=== PATIENT | male | born 1990 | race Two or more races ===

== ENCOUNTER 2017-08-17 10:37 | Emergency (ER) | payer MEDICAID ==
[~2017-08-17] VITALS: Ht 167.6 cm; Wt 81.6 kg
[2017-08-17] MEDS ORDERED: IBUPROFEN600 MG ORAL (11:12)
[2017-08-17] MEDS ORDERED: Dexamethasone 4mg/ml vial IM ONE (11:15)
[2017-08-17 11:25] VITALS: BP 128/70
--- NOTE | 2017-08-17 12:36 | Emergency Room Report ---
History of Present Illness General Chief Complaint: Skin Rash/Abscess Source: Patient Present Illness HPI 18-year-old male, no significant past medical history, presenting with sore throat for 2-3 days. Slight cough, no fever no chills, also with runny nose. States he has pain when he swallows however has still been able to eat and drink normally Allergies: Coded Allergies: No Known Allergies (Unverified , 08/17/17) Patient History Past Medical History: see triage record Past Surgical History: none Pertinent Family History: none Reviewed Nursing Documentation: PMH: Agreed, PSxH: Agreed Nursing Documentation-PMH Past Medical History: No Stated History Review of Systems All Other Systems: negative except mentioned in HPI Physical Exam Vital Signs Date Time Temp Pulse Resp B/P (MAP) Pulse Ox O2 Delivery O2 Flow Rate FiO2 08/17/17 10:48 97.0 91 20 123/73 94 Room Air Sp02 EP Interpretation: reviewed, normal General Appearance: normal inspection, well appearing, no apparent distress, alert, GCS 15, non-toxic Head: normocephalic, atraumatic Eyes: bilateral eye normal inspection, bilateral eye PERRL, bilateral eye EOMI ENT: other - Tonsillar erythema, no exudates, uvula is midline, no unilateral swelling Neck: normal inspection, full range of motion, supple Respiratory: normal inspection, lungs clear, normal breath sounds, no respiratory distress, no retraction, no wheezing, speaking full sentences, chest symmetrical Cardiovascular #1: normal inspection, regular rate, rhythm, no edema, normal capillary refill Cardiovascular #2: 2+ radial (R), 2+ radial (L) Gastrointestinal: normal inspection, non tender, soft, non-distended, no guarding Musculoskeletal: normal inspection, back normal, normal range of motion, non- tender Neurologic: normal inspection, alert, oriented x3, responsive, motor strength/ tone normal, sensory intact, normal gait, speech normal Psychiatric: normal inspection, judgement/insight normal, memory normal Skin: normal inspection, normal color, no rash, warm/dry, well hydrated, normal turgor Medical Decision Making Diagnostic Impression: Primary Impression: Viral pharyngitis ER Course 18-year-old male with sore throat DDX: Viral vs. infectious mononucleosis vs. bacterial pharyngitis vs. allergies Other serious causes such as [employer]OM[employer]HE [employer] / RPA / deep space neck infection history/physical most consistent with viral pharyngitis Plan: Pain control, decadron, supportive care. Abx not indicated at this time ER course: Patient remains stable in ED. Pt states improvement of pain Decadron given to patient. Disposition: Patient will be discharged to home. Patient will follow up with primary care doctor within 5 days. Strict return precautions discussed with patient such as worsening throat pain/swelling, dysphagia, high fever or chills, shortness of breath, abdominal pain, which may indicate severe illness. Patient verbalized understanding and agreed with plan. Please note that this Emergency Department Report was dictated using [employer] recovery operator technology software, occasionally this can lead to erroneous entry secondary to interpretation by the dictation equipment. Last Vital Signs Date Time Temp Pulse Resp B/P (MAP) Pulse Ox O2 Delivery O2 Flow Rate FiO2 08/17/17 11:25 97.0 83 20 128/70 100 Room Air Disposition: HOME, SELF-CARE Condition: Improved Scripts Ibuprofen* (MOTRIN*) 600 Mg Tablet 600 MG ORAL Q8H Y for For Pain, #30 TAB 0 Refills Prov: Mumtaz Thomas M.D. 08/17/17 Referrals: NOT CHOSEN IPA/,REFERRING (PCP) Patient Instructions: Pharyngitis, [id number] Mumtaz Thomas M.D. Aug 17, 2017 12:36
== END 2017-08-17 11:25 | disposition home or self-care (01) ==
LOC: EMR 11:02
DX: J02.9 Acute pharyngitis, unspecified (principal)
CPT/HCPCS: 96372; 99283; J1100

== ENCOUNTER 2017-10-08 09:26 | Emergency (ER) | payer MEDICAID ==
[~2017-10-08] VITALS: Ht 162.6 cm; Wt 83.0 kg
[~2017-10-08 09:26] MED LIST: IBUPROFEN600 MG ORAL
[2017-10-08 09:56] VITALS: BP 114/65
[2017-10-08] MEDS ORDERED: BACITRACIN1 EACH TOPIC (10:05)
[2017-10-08] MEDS ORDERED: IBUPROFEN600 MG ORAL (10:06)
[2017-10-08 10:22] VITALS: BP 123/76
--- NOTE | 2017-10-09 07:25 | Emergency Room Report ---
History of Present Illness General Chief Complaint: Skin Rash/Abscess Source: Patient Present Illness HPI 27-year-old male, presenting with swelling around the foreskin of penis for 2 days. Patient states it is painful, irritated. Has still been able to urinate without tissue. No fever no chills. Allergies: Coded Allergies: No Known Allergies (Unverified , 08/17/17) Patient History Past Medical History: see triage record Past Surgical History: none Pertinent Family History: none Reviewed Nursing Documentation: PMH: Agreed, PSxH: Agreed Nursing Documentation-PMH Past Medical History Deferred: Pt Cognitively Impaired Past Medical History: No Stated History Review of Systems All Other Systems: negative except mentioned in HPI Physical Exam Vital Signs Date Time Temp Pulse Resp B/P (MAP) Pulse Ox O2 Delivery O2 Flow Rate FiO2 10/08/17 09:41 97.9 78 16 114/65 100 Room Air Sp02 EP Interpretation: reviewed, normal General Appearance: normal inspection, well appearing, no apparent distress, alert, GCS 15, non-toxic Head: normocephalic, atraumatic Eyes: bilateral eye normal inspection, bilateral eye PERRL, bilateral eye EOMI ENT: normal ENT inspection, normal pharynx, normal voice, moist mucus membranes Neck: normal inspection, full range of motion, supple Respiratory: normal inspection, lungs clear, normal breath sounds, no respiratory distress, no retraction, no wheezing, speaking full sentences, chest symmetrical Cardiovascular #1: normal inspection, regular rate, rhythm, normal capillary refill Cardiovascular #2: 2+ radial (R), 2+ radial (L) Gastrointestinal: normal inspection, non tender, soft, non-distended, no guarding Genitourinary: other - Uncircumcised penis, redness and irritation around the foreskin, no discharge noted no abscess palpated, no fluctuance Musculoskeletal: normal inspection, back normal, normal range of motion, non- tender Neurologic: normal inspection, alert, oriented x3, responsive, motor strength/ tone normal, sensory intact, normal gait, speech normal Psychiatric: normal inspection, judgement/insight normal, memory normal Skin: normal inspection, normal color, no rash, warm/dry, well hydrated, normal turgor Medical Decision Making Diagnostic Impression: Primary Impression: Balanoposthitis ER Course 27-year-old male, irritation around the foreskin DDX: Appears to be balanoposthitis, no phimosis/paraphimosis Plan: Pain control ER course: Patient has remained stable during ED stay. Disposition: Patient is to be discharged to home. Prescriptions given are bacitracin ointment Patient is instructed to follow up with their primary care doctor within 5 days. Patient is instructed to keep the area very clean and educated on very clean hygiene, instructed to take sitz baths at least 3 times a day, to apply the bacitracin ointment Strict return precautions discussed with patient such as fever, chills, worsening/severe pain, chest pain, SOB, nausea, vomiting, which may indicate severe illness. Patient verbalizes understanding and agrees with plan. Please note that this Emergency Department Report was dictated using [employer] equipment operator technology software, occasionally this can lead to erroneous entry secondary to interpretation by the dictation equipment Last Vital Signs Date Time Temp Pulse Resp B/P (MAP) Pulse Ox O2 Delivery O2 Flow Rate FiO2 10/08/17 10:22 97.9 16 123/76 100 Room Air 208.2 10/08/17 09:41 78 Disposition: HOME, SELF-CARE Condition: Stable Scripts Ibuprofen* (MOTRIN*) 600 Mg Tablet 600 MG ORAL Q8H Y for For Pain, #30 TAB 0 Refills Prov: Mumtaz Thomas M.D. 10/08/17 Bacitracin (BACITRACIN*) 1 Each Packet 1 PACKET TOPIC THREE TIMES A DAY for 5 Days, #30 PACKET 0 Refills Prov: Mumtaz Thomas M.D. 10/08/17 Patient Instructions: Balanitis Additional Instructions: Please do: Sitz baths Soaking of the penis in warm water containing a weak salt solution two to three times per day PLEASE FOLLOW UP WITH YOUR PRIMARY CARE DOCTOR IN 1 WEEK FOR RECHECK Mumtaz Thomas M.D. Oct 09, 2017 07:25
== END 2017-10-08 10:24 | disposition home or self-care (01) ==
LOC: EMR 09:47
DX: N47.6 Balanoposthitis (principal)
CPT/HCPCS: 99283

== ENCOUNTER → 2019-07-09 | Emergency (ER) | payer MEDICAID ==
[~2019-07-09] VITALS: Ht 170.2 cm; Wt 81.6 kg
[~2019-07-09] MED LIST changes: +BACITRACIN1 EACH TOPIC; +Ketorolac 30mg Inj IM ONE; +NAPROXEN500 M2 ORAL; +TYLENOL EXTRA500 MG ORAL
[2019-07-09 11:02] VITALS: BP 126/77
--- NOTE | 2019-07-09 11:10 | NUR ---
ED Nurse Note: PT. AAOX4. AMBULATORY. PT WALKED IN TO ER. PER PT. HE HAS BEEN HAVING HEADACHE AND GENERALIZED BODY ACHES X 3 DAYS. DENIES CHILLS OR VOMITING. DENIES COUGH AND RUNNY NOSE
--- NOTE | 2019-07-09 12:14 | NUR ---
ED Nurse Note: ERPA at bedside.
--- NOTE | 2019-07-09 12:28 | Emergency Room Report ---
History of Present Illness General Chief Complaint: Pain Source: Patient Present Illness HPI 28-year-old male presents to the emergency department complaining of 10 out of 10 severity generalized body aches in addition to headache, fatigue and fever/ chills. Patient denies measuring his temperature he reports his symptoms are subjective and he felt hot. Patient states he took NyQuil twice and it did not relieve his symptoms. Patient states he did not receive this years flu vaccination. Patient denies cough, shortness of breath, neck pain or stiffness , photophobia, chest pain or palpitations. He denies sudden onset of his headache he denies any significant past medical history or history of immune compromise denies recent travel or ill contacts with similar symptoms. No other aggravating or relieving factors. Denies dizziness, slurred speech, LOC or syncope. He reports intermittent ST. Allergies: Coded Allergies: No Known Allergies (Unverified , 08/17/17) Patient History Past Medical History: see triage record Past Surgical History: none Pertinent Family History: none Reviewed Nursing Documentation: PMH: Agreed; PSxH: Agreed Nursing Documentation-PMH Past Medical History: No Stated History Review of Systems All Other Systems: negative except mentioned in HPI Physical Exam Vital Signs Date Time Temp Pulse Resp B/P (MAP) Pulse Ox O2 Delivery O2 Flow Rate FiO2 07/09/19 11:02 99.0 96 18 126/77 (93) 95 Room Air Sp02 EP Interpretation: reviewed, normal General Appearance: no apparent distress, alert, GCS 15, non-toxic Head: normocephalic, atraumatic Eyes: bilateral eye normal inspection, bilateral eye PERRL, bilateral eye other - no photophobia ENT: hearing grossly normal, normal pharynx, normal voice, moist mucus membranes, nasal congestion Neck: full range of motion, no meningismus, no bony tend Respiratory: lungs clear, normal breath sounds, no wheezing, speaking full sentences Cardiovascular #1: regular rate, rhythm, no edema Gastrointestinal: non tender, soft Musculoskeletal: back normal, gait/station normal, normal range of motion, non- tender Neurologic: alert, oriented x3, responsive, motor strength/tone normal, sensory intact, normal gait, speech normal, grossly normal Psychiatric: judgement/insight normal Skin: no rash, normal color Lymphatic: no adenopathy Medical Decision Making PA Attestation Dr. Nolasco is my supervising Physician whom patient management has been discussed with. Diagnostic Impression: Primary Impression: Acute viral syndrome ER Course 28-year-old male presents to the emergency department complaining of 10 out of 10 severity generalized body aches in addition to headache, fatigue and fever/ chills. Patient denies measuring his temperature he reports his symptoms are subjective and he felt hot. Patient states he took NyQuil twice and it did not relieve his symptoms. Patient states he did not receive this years flu vaccination. Patient denies cough, shortness of breath, neck pain or stiffness , photophobia, chest pain or palpitations. Denies N/V/C/D, abdominal pain, rhinorrhea or nasal congestion. He denies sudden onset of his headache he denies any significant past medical history or history of immune compromise denies recent travel or ill contacts with similar symptoms. No other aggravating or relieving factors. Denies dizziness, slurred speech, LOC or syncope. He reports intermittent ST. Ddx considered but are not limited to URI, pneumonia, PE, strep pharyngitis, meningitis, influenza, OM/OE just to name a few. Vital signs: Pt. is afebrile, the remaining VS are WNL H&PE are most consistent with Viral Syndrome will treat clinically - no meningeal signs, Lungs are clear and oropharynx is not involved, no evidence of bacterial infection at this time. No focal neurological deficits. Pt. NAD, non-toxic in appearance, ambulatory without assistance. ORDERS: none required at this time, the diagnosis is clinical ED INTERVENTIONS: None required at this time. --PT. EDUCATION: --I discussed with this patient he is describing viral symptoms , I do not suspect a bacterial infection at this time. -I do not identify an emergent condition at this time. With current presentation , pt. is stable for close outpatient follow up and conservative treatment. D/ w pt. to return promptly to ED with worsening or new symptoms.- Pt. verbalizes' understanding and agreement with proposed treatment plan. DISCHARGE: At this time pt. is stable for d/c to home. Will provide printed patient care instructions, and any necessary prescriptions. Care plan and follow up instructions have been discussed with the patient prior to discharge. Last Vital Signs Date Time Temp Pulse Resp B/P (MAP) Pulse Ox O2 Delivery O2 Flow Rate FiO2 07/09/19 11:02 99.0 96 18 126/77 95 Room Air Disposition: HOME, SELF-CARE Condition: Stable Scripts Acetaminophen* (TYLENOL EXTRA STRENGTH*) 500 Mg Tablet 500 MG ORAL Q6H PRN for Mild Pain/Temp > 100.5, #20 TAB 0 Refills Prov: Jeanie Kauffman 07/09/19 Naproxen* (NAPROXEN*) 500 Mg Tablet 500 MG ORAL TWICE A DAY, #10 TAB Prov: Jeanie Kauffman 07/09/19 Referrals: Asael Posada. [facility] Departure Forms: Return to Work Return to Work Date: Jul 14, 2019 Work Restrictions: None Other Restrictions: May return Sooner if Symptoms have resolved. Return to Full Activity: Jul 14, 2019 Patient Instructions: Muscle Pain, Adult, Viral Respiratory Infection, Easy-To- Read Additional Instructions: Take medications as directed. Follow up with a Primary Care Provider in 3-5 days, even if your symptoms have resolved. --Please review list of primary care clinics, if you do not already have a primary care provider Return sooner to ED if new symptoms occur, or current symptoms become worse. - Please note that this Emergency Department Report was dictated using [employer] analyst technology software, occasionally this can lead to erroneous entry secondary to interpretation by the dictation equipment. Jeanie Kauffman Jul 09, 2019 12:28
[2019-07-09 12:40] VITALS: BP 126/77
--- NOTE | 2019-07-09 12:40 | NUR ---
ED Nurse Note: Pt cleared by ERMD for discharge. DC instructions was given and explained to pt and verbalized understanding of teachings. Prescription was sent electronically to the pharmacy of choice. All medical deviecs such as ID band removed. Pt is AAO x4, ambulatory and left with all personal belongings.
== END | disposition home or self-care (01) ==
LOC: EMR 12:38
DX: B34.9 Viral infection, unspecified (principal)
CPT/HCPCS: 96372; J1885; Z7502; 99283